=== PATIENT | male | born 1970 | race Caucasian/White ===

== ENCOUNTER 2023-06-15 15:58 | Observation (INO) ==
--- NOTE | 2023-06-15 16:14 | ED Triage Note ---
Date of Service June 15, 2023 Provider in Triage Author: Adonay Tamez. History of Present Illness This patient was briefly evaluated while in triage. An abbreviated physical exam was performed. This patient is a 53-year-old Male who presents to the ED for evaluation of righ t upper abdominal pain, intermittent vomiting that has been present over the past few weeks. vomiting seems to be worse at night after he has been lying in bed for an hour or so. States he develops pain behind his L shoulder blade before symptoms start. no chest pain or dyspnea otherwise. in [place] right now. No medical problems. Never been immunized. Physical Exam CONSTITUTIONAL: in no acute pain or distress, resting comfortably SKIN: pink, warm, dry CARDIAC: regular rate and rhythm RESPIRATORY: in no respiratory distress, lungs clear ABDOMEN: focally tender in RUQ Initial orders for labs and / or imaging were placed and patient was placed in the waiting area until a bed is available. Please see further documentation for the full ED course.
[2023-06-15 16:47] LABS: Basophils # (auto) 0.03 K/uL (0.00-0.20); Basophils % (auto) 0.2 %; Hematocrit (blood only) 47.1 % (42.0-52.0); Hemoglobin 16.6 g/dl (14.0-18.0); Immature Granulocytes # (auto) 0.09 K/uL (0.01-0.20); Immature Granulocytes % (auto) 0.5 %; Lymphocytes # (auto) 1.34 K/uL (1.20-3.40); Lymphocytes % (auto) 7.7 %; Mean Corpuscular Hemoglobin 29.5 pg (25.0-34.0); Mean Corpuscular Hgb Conc 35.2 g/dL (32.0-36.0); Mean Corpuscular Volume 83.7 fL (80.0-100.0); Mean Platelet Volume 10.2 fL (9.4-12.4); Monocytes # (auto) 0.83 K/uL (0.11-0.59); Monocytes % (auto) 4.7 %; Neutrophils # (auto) 15.22 K/uL (1.40-6.50); Neutrophils % (auto) 86.9 %; Platelet Count 329 K/uL (130-400); RDW Coefficient of Variation 13.2 % (11.5-14.5); RDW Standard Deviation 39.9 fL (36.4-46.3); Red Blood Count 5.63 M/uL (4.70-6.10); White Blood Count 17.51 K/ul (4.8-10.8)
[2023-06-15] MEDS: SODIUM CHLORIDE 0.9% 1,000 ML IV STA (16:50)
[2023-06-15 17:05] LABS: Albumin Globulin Ratio 1.7 (0.9-2); BUN Creatinine Ratio 11.5 (10-20); Bilirubin,Total 1.3 mg/dl (0.2-1.0); Calcium 9.4 mg/dl (8.6-10.3); Creatinine Clr Calc Pharmacy 111.8 ml/min; Est GFR (African American) 118.6 ml/min; Est GFR (Non-African American) 102.3 ml/min; Globulin 2.9 gm/dl (2.5-4.0); Potassium 3.4 mmol/L (3.5-5.1); Total Protein 7.9 gm/dl (6.0-8.3)
[2023-06-15 17:11] LABS: Troponin I High Sensitivity 3.7 pg/ml (0-20)
[2023-06-15] MEDS: OPTIRAY 320 500ml IV ONE (17:43)
--- NOTE | 2023-06-15 18:08 | CT Scan Report ---
CT OF THE ABDOMEN AND PELVIS WITH CONTRAST CLINICAL HISTORY: right upper abdominal pain, intermittent COMPARISON STUDY: None. TECHNIQUE: Following IV administration of 85 mL of Optiray, axial images of the abdomen and pelvis we re obtained from the lung bases to the proximal femurs. Images were reviewed in the axial, sagittal, and coronal planes. IV contrast was administered without complication. Automated exposure control wa s utilized for the study. A dose lowering technique was utilized adhering to the principles of ALARA . CT DOSE: 1124.62 mGy.cm FINDINGS: Lung bases are unremarkable. No pneumatosis, free air or portal venous gas is present. A lo bulated low-attenuation 2.8 cm splenic lesion is indeterminate but statistically benign. The adrenal glands, kidneys and pancreas are unremarkable. There is no biliary or pancreatic ductal dilatation. S ubcentimeter right hepatic lobe lesion favors a cyst. 2.3 cm peripherally calcific gallstone within t he gallbladder neck is noted. Gallbladder is mildly distended. There is mild pericholecystic strandin g with gallbladder wall thickening. There is no evidence for a bowel obstruction. The caliber and wal l thickness of small and large bowel are normal. The appendix is unremarkable. Major vasculature is p atent. IMPRESSION: Findings suggestive of acute cholecystitis. Gallstone within the gallbladder neck with m ild gallbladder wall thickening and pericholecystic stranding. ACT 112: Negative or not required by law. Electronically signed by: Alexei Powell M.D. 06/15/2023 6:06 PM
[2023-06-15] MEDS: ACETAMINOPHEN 1,000 MG/100 ML VIAL IV STA (18:17)
[2023-06-15] MEDS: ONDANSETRON INJ 2 MG/ML 2 ML VIAL IV STA (18:18)
[2023-06-15] MEDS: SODIUM CHLORIDE 0.9% 1,000 ML IV SCH (18:18)
[2023-06-15] MEDS: FAMOTIDINE 20MG IV PUSH 20 MG/5 ML SYR IV STA (18:18)
[2023-06-15] MEDS ORDERED: MoRPHine SULFATE 4 MG/ML 1 ML CARP\\VIAL IV PRN (18:58)
--- NOTE | 2023-06-15 18:58 | Emergency Department Note ---
Impression & Plan Abdominal pain, Acute cholecystitis, Nausea & vomiting ED Provider Note ED Provider Note NAME: GERI FREEMAN AGE:53 SEX: Male : 1970 ARRIVES VIA: Private vehicle INFORMANT: Patient ED PROVIDER(s): Kristina Monique DO CHIEF COMPLAINT: Abdominal pain, nausea and vomiting HPI: This is a 53-year-old male presents emergency department due to concern for abdominal pain, nausea and vomiting. Patient with 3 intermittent episodes over the course the last 2 weeks. He states he will feel a slight pain in his back and then begins to have right upper quadrant pain followed by nausea and vomiting which last approximately 6 hours. Patient states symptoms began last night around midnight and never began to slow until around 7 AM this morning. He states he feels very tired at this time. He denies any accompanying fevers or chills at the states he did feel cold and sweaty when he was actively vomiting. He denies any hematemesis. He denies any recent change in bowels or urine. He denies any other prior GI or abdominal history. Patient states he takes no medications. PAST MEDICAL HISTORY:See Below PAST SURGICAL HISTORY:See Below FAMILY HISTORY:See Below SOCIAL HISTORY:See Below HOME MEDICATIONS:See Below ALLERGIES:See Below VITALS:See Below PHYSICAL EXAMINATION: GENERAL: alert, well appearing, well nourished, no distress, non-toxic EYE EXAM: normal conjunctiva, PERRL and EOM's grossly intact OROPHARYNX: no exudate, no erythema, lips, buccal mucosa, and tongue normal and mucous membranes are dry NECK: supple, no nuchal rigidity, no adenopathy, non-tender LUNGS: Clear to auscultation. Normal chest wall mechanics, no w/r/r HEART: no murmurs, S1 normal and S2 normal ABDOMEN: abdomen soft, tenderness to palpation in the right upper quadrant, normo-active bowel sounds, no masses, no rebound or guarding. BACK: Back is symmetrical on inspection and there is no deformity, no midline tenderness, no CVA tenderness. SKIN: no rashes, petechiae, orbruising UPPER EXTREMITIES: upper extremities are grossly normal. FROM, nml pulses b/l. LOWER EXTREMITIES: No pitting edema. FROM, nml pulses b/l. NEURO EXAM: Normal sensorium, cranial nerves II-XII grossly intact, normal speech, no facial droop,nogross weakness of arms, no gross weakness of legs. Gross sensation intact. No ataxia. Vital Signs: reviewed and remarkable Differential Diagnosis: Viral syndrome, GI bleed, pancreatitis, acute cholecystitis, colitis, bowel obstruction, mesenteric ischemia, renal colic, ACS, dissection, as well as others were considered MEDICAL DECISION MAKING: This is a 53-year-old male presents emergency department due to concern for abdominal pain, nausea and vomiting. Patient afebrile vital signs stable, patient noted to initially be mildly hypertensive although was having pain and nausea at that time. Labs drawn and sent, IV established, EKG performed at bedside interpreted me and patient monitored on telemetry. He was sent for CT of the abdomen and pelvis which showed acute cholecystitis. Patient started on IV fluids and given IV Tylenol and IV Zofran. IV morphine was added additionally as a as needed. Case discussed via [place] text with general surgery, Dr. Becerra. He will place admission orders and see the patient in the morning to discuss likely operative intervention tomorrow morning. Patient given IV Zosyn additionally. Consultation(s): 1855: Discussed with Dr. Becerra via [place] text. He will place admission orders and see the patient first thing in the morning to discuss gallbladder removal. ER Treatment Provided: See below Diagnostics Interpreted By Me: -ECG: Normal sinus at 93, normal axis, normal intervals, no acute ST/T wave changes -Cardiac Monitoring: An order was placed for continuous cardiac monitoring. The monitor shows a rate of 80 with normal sinus rhythm. -Laboratory studies: As stated above and show below. Triage Nursing Note Reviewed Prior/Outside Records Reviewed Past Med/Surg History Social History Smoking Status: Never smoker Preferred Language: Maldivian Feels Safe at Home: Yes Allergies Allergies Allergy/AdvReac Type Severity Reaction Status Date / Time Penicillins Allergy Unknown childhood Verified 06/15/23 19:07 reaction Home Meds Home Medications Medication Instructions Recorded Confirmed No Known Home Medications 06/15/23 06/15/23 Results & Data (ED) Vital Signs Vital Signs - 24 hr 06/15/23 16:05 06/15/23 17:58 06/15/23 17:59 Temperature 36.1 C L Temperature Source Temporal Artery Scan Pulse Rate 97 H 75 Pulse Rate [Right Finger] 75 Pulse Rhythm Regular Pulse Strength Normal Respiratory Rate 20 20 20 Respiratory Effort / Characteristics Non-Labored Spontaneous Non-Labored Spontaneous Respiratory Depth Normal Normal Respiratory Pattern Regular Regular Blood Pressure 169/121 H Blood Pressure [Right Arm] 173/111 H Blood Pressure Mean 137 Blood Pressure Mean [Right Arm] 131 Blood Pressure Position Sitting Pulse Oximetry 98 97 97 Oxygen Delivery Method Room Air Room Air Room Air Sepsis Recent Fever Within 48 Hours No Sepsis New/Unexplained Change in Mental Status No Sepsis Action Taken by Nursing No Action Required Laboratory Data 06/15/23 16:34 06/15/23 16:34 Lab Results 06/15/23 Range/Units 16:34 WBC 17.51 H (4.8-10.8) K/ul RBC 5.63 (4.70-6.10) M/uL Hgb 16.6 (14.0-18.0) g/dl Hct 47.1 (42.0-52.0) % MCV 83.7 (80.0-100.0) fL MCH 29.5 (25.0-34.0) pg MCHC 35.2 (32.0-36.0) g/dL RDW Std Deviation 39.9 (36.4-46.3) fL RDW Coeff of Christiane 13.2 (11.5-14.5) % Plt Count 329 (130-400) K/uL MPV 10.2 (9.4-12.4) fL Immature Gran % (Auto) 0.5 % Neut % (Auto) 86.9 % Lymph % (Auto) 7.7 % [place] % (Auto) 4.7 % Eos % (Auto) 0.0 % Baso % (Auto) 0.2 % Neut # (Auto) 15.22 H (1.40-6.50) K/uL Lymph # (Auto) 1.34 (1.20-3.40) K/uL [place] # (Auto) 0.83 H (0.11-0.59) K/uL Eos # (Auto) 0.00 (0.00-0.50) K/uL Baso # (Auto) 0.03 (0.00-0.20) K/uL Immature Gran # (Auto) 0.09 (0.01-0.20) K/uL Sodium 139 (136-145) mmol/L Potassium 3.4 L (3.5-5.1) mmol/L Chloride 105 (98-107) mmol/L Carbon Dioxide 26 (21-32) mmol/L Anion Gap 8 (3-11) BUN 9 (6-23) mg/dl Creatinine 0.78 (0.6-1.4) mg/dl Est Cr Clr Drug Dosing 111.8 ml/min Est GFR ( Amer) 118.6 ml/min Est GFR (Non-Af Amer) 102.3 ml/min BUN/Creatinine Ratio 11.5 (10-20) Glucose 168 H (70-99(Fasting)) mg/dl Calcium 9.4 (8.6-10.3) mg/dl Total Bilirubin 1.3 H (0.2-1.0) mg/dl AST 17 (13-39) U/L ALT 20 (7-52) U/L Alkaline Phosphatase 84 (34-104) U/L Troponin I High Sens 3.7 (0-20) pg/ml Total Protein 7.9 (6.0-8.3) gm/dl Albumin 5.0 (3.4-5.0) gm/dl Globulin 2.9 (2.5-4.0) gm/dl Albumin/Globulin Ratio 1.7 (0.9-2) Lipase 10 L (11-82) U/L Administered Medications Hydralazine HCl (Hydralazine Hcl 20 Mg/Ml Vial) 10 mg IV Q8 PRN PRN Reason: for SBP>160 or DBP>100 Stop: 07/15/23 21:53 Last Admin: 06/15/23 22:15 Dose: 10 mg Documented By: DYLAN Potassium Chloride (K Chi / Wtr) 10 meq in 100 mls @ 100 mls/hr IV Q1H FLY Stop: 06/15/23 23:53 Last Admin: 06/15/23 22:09 Dose: 100 mls/hr Documented By: DYLAN Potassium Chloride/Sodium Chloride (Normal Saline W/20 Meq Kcl) 20 meq in 1,000 mls @ 75 mls/hr IV .[id number] FLY; Protocol Stop: 07/15/23 23:14 Last Admin: 06/15/23 23:20 Dose: 75 mls/hr Documented By: DYLAN Discontinued Medications Sodium Chloride (Nss) 1,000 mls @ 999 mls/hr IV .Q1H1M STA Stop: 06/15/23 17:06 Last Infusion: 06/15/23 17:58 Dose: Infused Documented By: Admin: 06/15/23 16:50 Dose: 999 mls/hr Documented By: KANWAL Sodium Chloride (Nss) 1,000 mls @ 125 mls/hr IV .Q8H FLY Stop: 07/15/23 18:14 Last Infusion: 06/15/23 23:20 Dose: Infused Documented By: Admin: 06/15/23 18:18 Dose: 125 mls/hr Documented By: FAISAL Acetaminophen (Ofirmev) 1,000 mg in 100 mls @ 400 mls/hr IV NOW STA Stop: 06/15/23 18:25 Last Infusion: 06/15/23 18:33 Dose: Infused Documented By: Admin: 06/15/23 18:17 Dose: 400 mls/hr Documented By: FAISAL Famotidine (Pepcid 20mg Iv Push) 20 mg in 5 mls @ 2.5 mls/min IV NOW STA Stop: 06/15/23 18:12 Last Admin: 06/15/23 18:18 Dose: 2.5 mls/min Documented By: FAISAL Piperacillin Sod/Tazobactam Sod (Zosyn) 4.5 gm in 100 mls @ 200 mls/hr IV NOW ONE Stop: 06/15/23 19:28 Last Infusion: 06/15/23 22:09 Dose: Infused Documented By: Admin: 06/15/23 19:39 Dose: 200 mls/hr Documented By: KANWAL Ioversol (Optiray 320 500ml) 85 ml IV ONCE ONE Stop: 06/15/23 17:44 Last Admin: 06/15/23 17:43 Dose: 85 ml Documented By: LAURA Ondansetron HCl (Ondansetron Inj 2 Mg/Ml 2 Ml Vial) 4 mg IV NOW STA Stop: 06/15/23 18:12 Last Admin: 06/15/23 18:18 Dose: 4 mg Documented By: FAISAL Imaging Data Radiologist's Impression: Abdomen/Pelvis CT 06/15/23 16:07 CT OF THE ABDOMEN AND PELVIS WITH CONTRAST CLINICAL HISTORY: right upper abdominal pain, intermittent COMPARISON STUDY: None. TECHNIQUE: Following IV administration of 85 mL of Optiray, axial images of the abdomen and pelvis were obtained from the lung bases to the proximal femurs. Images were reviewed in the axial, sagittal, and coronal planes. IV contrast was administered without complication. Automated exposure control was utilized for the study. A dose lowering technique was utilized adhering to the principles of ALARA. CT DOSE: 1124.62 mGy.cm FINDINGS: Lung bases are unremarkable. No pneumatosis, free air or portal venous gas is present. A lobulated low-attenuation 2.8 cm splenic lesion is indeterminate but statistically benign. The adrenal glands, kidneys and pancreas are unremarkable. There is no biliary or pancreatic ductal dilatation. Subcentimeter right hepatic lobe lesion favors a cyst. 2.3 cm peripherally calcific gallstone within the gallbladder neck is noted. Gallbladder is mildly distended. There is mild pericholecystic stranding with gallbladder wall thickening. There is no evidence for a bowel obstruction. The caliber and wall thickness of small and large bowel are normal. The appendix is unremarkable. Major vasculature is patent. IMPRESSION: Findings suggestive of acute cholecystitis. Gallstone within the gallbladder neck with mild gallbladder wall thickening and pericholecystic stranding. ACT 112: Negative or not required by law. Electronically signed by: Alexei Powell M.D. 06/15/2023 6:06 PM Discharge Plan Visit Data Chief Complaint: Vomiting Stated Complaint: VOMITING, ABD PAIN ED Provider: Kristina Monique Discharge Problem: Abdominal pain, Acute cholecystitis, Nausea & vomiting Patient Disposition: Admitted As Inpatient Discharge Instructions Interventions: ED Discharge Assessment Last Done: 06/15/23 21:33
[2023-06-15] MEDS ORDERED: ONDANSETRON INJ 2 MG/ML 2 ML VIAL IV PRN (19:01)
[2023-06-15] MEDS ORDERED: HYDROmorphone INJ 0.5 MG/0.5 ML SYR IV PRN ×2 (19:01)
[2023-06-15 19:37] LABS: Appearance Urine Clear (Clear); Bilirubin Urine Negative (Negative); Blood Urine Negative (Negative); Color Urine Yellow; Glucose Urine UA Trace (Negative); Ketones Urine Negative (Negative); Leukocyte Esterase Urine Negative (Negative); Nitrite Urine Negative (Negative); Protein Urine Negative (Negative); Specific Gravity Urine > 1.045 (1.000-1.030); Urobilinogen Urine Negative (Negative)
[2023-06-15] MEDS: PIPERACILLIN/TAZOBACTAM 4.5 GM/100 ML BAG IV ONE (19:39)
[2023-06-15] MEDS: POTASSIUM CHLORIDE / WTR 10 MEQ/100 ML PLCT IV SCH (22:09)
[2023-06-15] MEDS: hydrALAZINE HCL 20 MG/ML VIAL IV PRN (22:15)
--- NOTE | 2023-06-15 23:05 | Hospitalist Consultation ---
Date of Consultation June 15, 2023 Assessment & Plan (1) Hypertension: (2) Acute cholecystitis: (3) Nausea & vomiting: (4) Abdominal pain: Plan Acute cholecystitis/nausea and vomiting- Patient is admitted to the primary service of general surgery Dr. Becerra Continue treatment per his direction Uncontrolled blood pressure/hypertension- Patient reports that he has known for years of his blood pressure being elevated, after randomly putting his arm into blood pressure cuffs at stores. He has never been on blood pressure medication Peak blood pressure in the emergency department was 209/133 with heart rate 55 After arriving to the medical floor, first dose of hydralazine 10 mg IV improved blood pressure to 193/98 with heart rate 55 Patient next had amlodipine 5 mg and lisinopril 10 mg p.o. added, and 2 hours later blood pressure decreased to 164/88 with pulse 71 Continue hydralazine 10 mg IV as needed systolic blood pressure greater than 160, but change interval from every 8 hours as needed to every 4 hours as needed Of note, from the ED, patient did receive 1 L normal bolus of normal saline, nd was being maintained on normal saline at 125 MLS per hour The fluid bolus may be transiently contributing to his elevated blood pressure. IV fluids changed to NSS + KCl 20 mEq at 75 MLS per hour, to help address potassium 3.4 [facility] service will follow patient along during stay History of Present Illness Reason for Consultation: Elevated blood pressure Requesting Physician: Isma Becerra DO Attending Physician: Isma Becerra, History of Present Illness The patient presented to the emergency department due to concerns regarding abdominal pain, nausea and vomiting, having had 3 episodes of the past 2 weeks, with the last episode beginning last night, and lasting into around 7 AM this morning. Upon questioning, the patient reports that he has known that his blood pressure has been elevated for quite some time, several years, after having put his arm into a blood pressure cuff erratically at a place like [facility]. While in the emergency department this evening, blood pressure upon presentation was 169/121 with a heart rate in the 50s, with peak pressure being 209/133 and heart rate 55. The patient is admitted to the medical service of Dr. Becerra for potential lap tiffanie tomorrow, and we are asked to assess and control blood pressure this evening Allergies Allergy/AdvReac Type Severity Reaction Status Date / Time Penicillins Allergy Unknown childhood Verified 06/15/23 19:07 reaction Home Medications Medication Instructions Recorded Confirmed Type No Known Home Medications 06/15/23 06/15/23 History Patient History Medical History (Updated 06/16/23 @ 02:19 by Sanchez Ward MD) Hypertension Social History Smoking Status: Never smoker Hx Alcohol Use: No Hx Substance Use: Yes Last Used Substance: Days (ago) Preferred Language: Canadian Communication Ability: Effective Office Coordinator Receptionist Required: No Beliefs That Will Affect Care: None Current Living Situation: Spouse Feels Safe at Home: Yes Safety Concerns: Feels Safe At This Time Review of Systems Review of Systems: The patient denies chest pain, palpitations, shortness of breath, dyspnea on exertion, cough, lower extremity swelling, sore throat, fevers, chills, sweats, weight change, blood in urine or stool, dysuria, urinary frequency or urgency, lightheadedness, dizziness, headache, memory loss, loss of consciousness, rash, abnormal bruising or bleeding, imbalance, focal weakness, numbness or tingling in arms or legs, generalized arthralgias or myalgias, neck pain, or night sweats. The review of systems is otherwise negative other than for that already noted above, and at least 10 systems have been reviewed. Physical Exam Physical Exam: The patient is awake, alert and oriented 3, well developed and well nourished, normocephalic and atraumatic, lying in bed and in no acute distress. HEENT--PERRL, EOMI, mucous membranes and oropharynx mildly dry. Neck--supple. No JVD. No bruits. Thyroid normal, trachea midline, no adenopathy. Heart--normal S1 and S2. No murmurs, rubs or gallops. Lungs--clear bilaterally, no respiratory distress, no accessory muscle use. Abdomen--normal bowel sounds and soft. Mild right upper quadrant tenderness Extremities--no cyanosis or clubbing. No edema. Dermatologic--normal skin turgor, normal color, no abnormal lymph nodes, no rash. Neurologic--cranial nerves II through XII grossly intact. Rheumatologic--normal range of motion. Psychiatric--normal affect. Results & Data Results & Data Vital Signs (Past 12 Hours) Vital Signs Temp Pulse Pulse Pulse Resp BP BP 06/15/23 22:45 193/98 H 06/15/23 21:00 55 L 15 198/117 H 06/15/23 20:30 61 19 186/110 H 06/15/23 20:00 66 13 199/121 H 06/15/23 19:56 60 06/15/23 19:46 204/124 H 06/15/23 19:45 59 L 15 209/133 H 06/15/23 17:59 75 20 173/111 H 06/15/23 17:58 75 20 06/15/23 16:05 36.1 C L 97 H 20 169/121 H Pulse Ox O2 Del Method 06/15/23 22:45 06/15/23 21:00 97 Room Air 06/15/23 20:30 97 Room Air 06/15/23 20:00 97 Room Air 06/15/23 19:56 06/15/23 19:46 06/15/23 19:45 97 Room Air 06/15/23 17:59 97 Room Air 06/15/23 17:58 97 Room Air 06/15/23 16:05 98 Room Air Laboratory Results Laboratory Results WBC 17.51 K/ul (4.8-10.8) H 06/15/23 16:34 RBC 5.63 M/uL (4.70-6.10) 06/15/23 16:34 Hgb 16.6 g/dl (14.0-18.0) 06/15/23 16:34 Hct 47.1 % (42.0-52.0) 06/15/23 16:34 MCV 83.7 fL (80.0-100.0) 06/15/23 16:34 MCH 29.5 pg (25.0-34.0) 06/15/23 16:34 MCHC 35.2 g/dL (32.0-36.0) 06/15/23 16:34 RDW Std Deviation 39.9 fL (36.4-46.3) 06/15/23 16:34 RDW Coeff of Christiane 13.2 % (11.5-14.5) 06/15/23 16:34 Plt Count 329 K/uL (130-400) 06/15/23 16:34 MPV 10.2 fL (9.4-12.4) 06/15/23 16:34 Immature Gran % (Auto) 0.5 % 06/15/23 16:34 Neut % (Auto) 86.9 % 06/15/23 16:34 Lymph % (Auto) 7.7 % 06/15/23 16:34 [place] % (Auto) 4.7 % 06/15/23 16:34 Eos % (Auto) 0.0 % 06/15/23 16:34 Baso % (Auto) 0.2 % 06/15/23 16:34 Neut # (Auto) 15.22 K/uL (1.40-6.50) H 06/15/23 16:34 Lymph # (Auto) 1.34 K/uL (1.20-3.40) 06/15/23 16:34 [place] # (Auto) 0.83 K/uL (0.11-0.59) H 06/15/23 16:34 Eos # (Auto) 0.00 K/uL (0.00-0.50) 06/15/23 16:34 Baso # (Auto) 0.03 K/uL (0.00-0.20) 06/15/23 16:34 Immature Gran # (Auto) 0.09 K/uL (0.01-0.20) 06/15/23 16:34 Sodium 139 mmol/L (136-145) 06/15/23 16:34 Potassium 3.4 mmol/L (3.5-5.1) L 06/15/23 16:34 Chloride 105 mmol/L (98-107) 06/15/23 16:34 Carbon Dioxide 26 mmol/L (21-32) 06/15/23 16:34 Anion Gap 8 (3-11) 06/15/23 16:34 BUN 9 mg/dl (6-23) 06/15/23 16:34 Creatinine 0.78 mg/dl (0.6-1.4) 06/15/23 16:34 Est Cr Clr Drug Dosing 111.8 ml/min 06/15/23 16:34 Est GFR ( Amer) 118.6 ml/min 06/15/23 16:34 Est GFR (Non-Af Amer) 102.3 ml/min 06/15/23 16:34 BUN/Creatinine Ratio 11.5 (10-20) 06/15/23 16:34 Glucose 168 mg/dl (70-99(Fasting)) H 06/15/23 16:34 Calcium 9.4 mg/dl (8.6-10.3) 06/15/23 16:34 Total Bilirubin 1.3 mg/dl (0.2-1.0) H 06/15/23 16:34 AST 17 U/L (13-39) 06/15/23 16:34 ALT 20 U/L (7-52) 06/15/23 16:34 Alkaline Phosphatase 84 U/L (34-104) 06/15/23 16:34 Troponin I High Sens 3.7 pg/ml (0-20) 06/15/23 16:34 Total Protein 7.9 gm/dl (6.0-8.3) 06/15/23 16:34 Albumin 5.0 gm/dl (3.4-5.0) 06/15/23 16:34 Globulin 2.9 gm/dl (2.5-4.0) 06/15/23 16:34 Albumin/Globulin Ratio 1.7 (0.9-2) 06/15/23 16:34 Lipase 10 U/L (11-82) L 06/15/23 16:34 Urine Color Yellow 06/15/23 19:24 Urine Appearance Clear (Clear) 06/15/23 19:24 Urine pH 8.0 (4.5-7.5) H 06/15/23 19:24 Ur Specific [place] > 1.045 (1.000-1.030) H 06/15/23 19:24 Urine Protein Negative (Negative) 06/15/23 19:24 Urine Glucose (UA) Trace (Negative) H 06/15/23 19:24 Urine Ketones Negative (Negative) 06/15/23 19:24 Urine Blood Negative (Negative) 06/15/23 19:24 Urine Nitrite Negative (Negative) 06/15/23 19:24 Urine Bilirubin Negative (Negative) 06/15/23 19:24 Urine Urobilinogen Negative (Negative) 06/15/23 19:24 Ur Leukocyte Esterase Negative (Negative) 06/15/23 19:24 Impressions Abdomen/Pelvis CT 06/15/23 16:07 CT OF THE ABDOMEN AND PELVIS WITH CONTRAST CLINICAL HISTORY: right upper abdominal pain, intermittent COMPARISON STUDY: None. TECHNIQUE: Following IV administration of 85 mL of Optiray, axial images of the abdomen and pelvis were obtained from the lung bases to the proximal femurs. Images were reviewed in the axial, sagittal, and coronal planes. IV contrast was administered without complication. Automated exposure control was utilized for the study. A dose lowering technique was utilized adhering to the principles of ALARA. CT DOSE: 1124.62 mGy.cm FINDINGS: Lung bases are unremarkable. No pneumatosis, free air or portal venous gas is present. A lobulated low-attenuation 2.8 cm splenic lesion is indeterminate but statistically benign. The adrenal glands, kidneys and pancreas are unremarkable. There is no biliary or pancreatic ductal dilatation. Subcentimeter right hepatic lobe lesion favors a cyst. 2.3 cm peripherally ca lcific gallstone within the gallbladder neck is noted. Gallbladder is mildly distended. There is mild pericholecystic stranding with gallbladder wall thickening. There is no evidence for a bowel obstruction. The caliber and wall thickness of small and large bowel are normal. The appendix is unremarkable. Major vasculature is patent. IMPRESSION: Findings suggestive of acute cholecystitis. Gallstone within the gallbladder neck with mild gallbladder wall thickening and pericholecystic stranding. ACT 112: Negative or not required by law. Electronically signed by: Alexei Powell M.D. 06/15/2023 6:06 PM PG Care Time/CCT Total # of Minutes Spent Total Time Spent with Patient: Total time spent is greater than 50% in coordination of care (as documented) at patient's floor/unit and/or counseling patient: Coding Level of Care Code 51646 IN/OBS CONSULT LVL 4,60M Diagnoses Hypertension I10 Acute cholecystitis K81.0 Nausea & vomiting R11.2 Abdominal pain R10.9
[2023-06-15] MEDS: NSS + 20MEQ KCL 20 MEQ/1,000 ML BAG IV SCH (23:20)
[2023-06-15] MEDS: lisinopril 10 MG TAB PO STA (23:21)
[2023-06-15] MEDS: amLODIPine BESYLATE 5 MG TAB PO ONE (23:21)
[2023-06-15] MEDS: CIPROFLOXACIN / D5W 400 MG/200 ML BAG IV SCH (23:38)
[2023-06-15] MEDS: metroNIDAZOLE 500 MG/100 ML BAG IV SCH (23:38)
[2023-06-16] MEDS ORDERED: PIPERACILLIN/TAZOBACTAM 4.5 GM in DEXTROSE 5% MINI-B 100 ML IV SCH
[2023-06-16] MEDS ORDERED: hydrALAZINE HCL 20 MG/ML VIAL IV PRN (00:15)
[2023-06-16 07:49] LABS: Albumin Level 4.3 gm/dl (3.4-5.0); Bilirubin Direct 0.3 mg/dl (0-0.2); Bilirubin,Total 1.3 mg/dl (0.2-1.0); Total Protein 6.9 gm/dl (6.0-8.3)
--- NOTE | 2023-06-16 09:40 | Hospitalist Progress Note ---
Date of Service June 16, 2023 Assessment & Plan (1) Acute cholecystitis: Plan: - Pain control/dvt proh/abx per primary team - general surgery, Dr. Becerra - plan for MRCP today with possible OR later (2) Hypertension: Plan: - From [place], does not regularly go to doctors, has been told BP elevated in past, never on medication - Highest in ED 209/133, received hydralazine 10 mg IV, amlodipine 5 mg and lisinopril 10 mg p.o. added, and 2 hours later blood pressure decreased to 164/88 with pulse 71 - Continue hydralazine 10 mg IV as needed systolic blood pressure greater than 160 every 4 hours as needed - will likely need transitioned to PO meds prior to discharge - IV fluids changed to NSS + KCl 20 mEq at 75 mLs per hour, to help address potassium 3.4 -Recheck BMP in am Plan Dispo: continued inpatient stay Admission and Anticipated Discharge Date Admission Date: June 15, 2023 Subjective Patient sitting up in bed, moves independently. 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 RUQ pain for the last few months, worse in the last few weeks. Pain well controlled. Per patient MRCP prior to possible surgery today. No further vomiting, but pt is NPO. Reports went to doctor at age 49 for physical and BP was elevated, never instructed to start medication. Has not been to doctor since. Review of Systems Review of Systems: All systems reviewed & are unremarkable except as noted in Subjective Physical Exam Physical Exam: General: NAD, VS as above Resp: normal respiratory effort, lungs clear to auscultation CV: RRR, no murmur, Abd: normal bowel sounds, tenderness RUQ, no hepatosplenomegaly Extremities: Moves all extremities, no edema Neuro: A&O x3, Skin: intact, no lesions noted, nonjaundice Results & Data Results & Data Vital Signs (Past 12 Hours) Vital Signs Temp Pulse Resp BP Pulse Ox O2 Del Method 06/16/23 07:41 36.6 C 72 18 161/101 H 96 Room Air 06/16/23 01:41 71 164/88 H 06/15/23 22:45 193/98 H 06/15/23 21:45 37.1 C 63 16 188/118 H 97 Room Air Laboratory Results LFTs reviewed PG Care Time/CCT Total # of Minutes Spent Total Time Spent with Patient: Total time spent is greater than 50% in coordination of care (as documented) at patient's floor/unit and/or counseling patient: Coding Level of Care Code 54250 SUB INP/OBS CARE 2MIN Diagnoses Acute cholecystitis K81.0 Hypertension I10
--- NOTE | 2023-06-16 11:05 | Magnetic Resonance Report ---
MR MRCP CLINICAL HISTORY: elevated LFTs TECHNIQUE: Multiplanar multisequence MR images of the abdomen were obtained, as per MRCP protocol. . COMPARISON: None available at the time of this dictation. FINDINGS: Lower chest: No acute abnormality Liver: Unremarkable. No focal lesions are seen. Gallbladder and biliary tree: Gallstones are seen with a thickened gallbladder wall measuring approxi mately 5 mm in diameter with pericholecystic fluid. No intra- or extrahepatic biliary ductal dilation . Pancreas: Unremarkable, no focal lesions. Spleen: T2 hyperintense lesion in the spleen may represent a hemangioma or cyst Adrenals: Unremarkable. Kidneys and ureters: Perinephric stranding is noted bilaterally. Bowel: Unremarkable. Lymph nodes Retroperitoneal: Unremarkable. Mesenteric: Unremarkable. Peritoneum: Normal Vessels: Unremarkable. Abdominal wall: Unremarkable. Bones: Unremarkable. IMPRESSION: Findings are compatible with cholecystitis which may be acute or chronic in this patient with months of right upper quadrant pain. The common bile duct is unremarkable. ACT 112: Negative or not required by law. Electronically signed by: Lenin Dinh M.D. 06/16/2023 11:04 AM
--- NOTE | 2023-06-16 11:18 | History & Physical Report ---
Date of Service June 16, 2023 Assessment & Plan (1) Acute cholecystitis: Plan: Slight bump in his total bilirubin and direct bilirubin. MRCP does not show any common bile duct stones. Discussed his options as well as risks which include bleeding, infection, injury to another organ or bile duct, DVT, PE, SC, CVA etc. I answered all his questions. He agrees with the plan we will proceed today with laparoscopic cholecystectomy. Admission and Anticipated Discharge Date Admission Date: June 15, 2023 History of Present Illness Primary Care Provider: NO PCP 53-year-old male with a 2-week history of intermittent vomiting. Complaints where he vomited over 10 times. He had severe pain and came to the emergency room where he was diagnosed with acute cholecystitis Allergies Allergy/AdvReac Type Severity Reaction Status Date / Time Penicillins Allergy Unknown childhood Verified 06/15/23 19:07 reaction Home Medications Medication Instructions Recorded Confirmed Type No Known Home Medications 06/15/23 06/15/23 History Past Med/Surg History Medical History (Updated 06/16/23 @ 02:19 by Sanchez Ward MD) Hypertension Social History Smoking Status: Never smoker Hx Alcohol Use: No Hx Substance Use: Yes Last Used Substance: Days (ago) Preferred Language: Dutch Communication Ability: Effective Teller Manager Required: No Beliefs That Will Affect Care: None Current Living Situation: Spouse Feels Safe at Home: Yes Safety Concerns: Feels Safe At This Time Review of Systems All systems reviewed & are unremarkable except as noted in HPI & below Physical Exam Constitutional: WD/WN, vitals as above no acute distress and not ill appearing Eyes: PERRL, conjunctivae normal, anicteric sclerae EOM intact bilaterally ENMT: external ear and nose normal, oropharynx normal Ears: no hearing impairment Neck: trachea midline, no thyromegaly Respiratory: normal respiratory effort; no respiratory distress and does not use accessory muscles Cardiovascular: Rate/Rhythm: regular rate and regular rhythm Gastrointestinal (Abdomen): Soft. Moderate upper quadrant tenderness. No guarding Skin: no rashes, warm and dry Psychiatric: Orientation: alert, oriented x 3 and cooperative Results & Data Vital Signs (Past 12 Hours) Vital Signs Temp Pulse Resp BP Pulse Ox O2 Del Method 06/16/23 07:41 36.6 C 72 18 161/101 H 96 Room Air 06/16/23 01:41 71 164/88 H Code Status & VTE Plan VTE Prophylaxis Plan VTE Prophylaxis will be ordered: Yes
--- NOTE | 2023-06-16 12:26 | Anesthesiology Consultation ---
Date of Service June 16, 2023 Assessment & Plan (1) Encounter for pre-operative examination: Chart Review Chart Review: Acceptable Risk for Surgery History Surgery Operation Date: 06/16/23 09:10 Proposed Procedures p Laparoscopic Cholecystectomy - Isma Becerra, Height/Weight Height: 5 ft 10 in Weight: 84.2 kg Allergies Allergy/AdvReac Type Severity Reaction Status Date / Time Penicillins Allergy Unknown childhood Verified 06/15/23 19:07 reaction Medications Home Medications Medication Instructions Recorded Confirmed Last Taken No Known Home Medications 06/15/23 06/15/23 Unknown Active Medications Generic Name Dose Route Start Last Admin Trade Name Freq PRN Reason Stop Dose Admin Ciprofloxacin 400 mg in 200 mls @ 100 mls/hr 06/15/23 22:00 06/16/23 11:19 Cipro / D5w IV 06/25/23 21:59 100 mls/hr Q12H FLY Administration Protocol Metronidazole 500 mg in 100 mls @ 100 mls/hr 06/15/23 22:00 06/16/23 07:45 Flagyl IV 06/25/23 21:59 Infused Q8H FLY Infusion Protocol Potassium Chloride/Sodium Chloride 20 meq in 1,000 mls @ 75 mls/hr 06/15/23 23:15 06/15/23 23:20 Normal Saline W/20 Meq Kcl IV 07/15/23 23:14 75 mls/hr .[id number] FLY Administration Protocol NPO Date Last Intake of Fluids: 06/14/23 Time Last Intake of Fluids: 16:00 Last Intake 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 Date Last Intake of Solids: 06/14/23 Past Medical History Medical History Hypertension Social History Smoking Status: Never smoker Hx Alcohol Use: No Hx Substance Use: Yes substance use type: marijuana Last Used Substance: Days (ago) Physical Exam Vital Signs Last Vital Signs Temp 37.1 C 06/16/23 11:45 Pulse 79 06/16/23 11:45 Resp 18 06/16/23 11:45 BP 174/95 H 06/16/23 11:45 Pulse Ox 97 06/16/23 11:45 O2 Del Method Room Air 06/16/23 11:45 Testing Laboratory Results 06/15/23 16:34 06/15/23 16:34 Urine Color Yellow 06/15/23 19:24 Urine Appearance Clear (Clear) 06/15/23 19:24 Urine pH 8.0 (4.5-7.5) H 06/15/23 19:24 Ur Specific [place] > 1.045 (1.000-1.030) H 06/15/23 19:24 Urine Protein Negative (Negative) 06/15/23 19:24 Urine Glucose (UA) Trace (Negative) H 06/15/23 19:24 Urine Ketones Negative (Negative) 06/15/23 19:24 Urine Nitrite Negative (Negative) 06/15/23 19:24 Ur Leukocyte Esterase Negative (Negative) 06/15/23 19:24 Electrocardiogram Date: 06/15/23 Findings: + NSR @ (93) and + poor R wave progression
[2023-06-16] MEDS ORDERED: MIDAZOLAM HCL 1 MG/ML 2ML VIAL ONE (12:30)
[2023-06-16] MEDS ORDERED: fentaNYL citrate PF 100 MCG/2 ML VIAL ONE ×3 (12:30→13:49)
[2023-06-16] MEDS ORDERED: PROMETHAZINE HCL 6.25 MG in SODIUM CHLORIDE 0.9% 50 ML IV PRN (12:39)
[2023-06-16] MEDS ORDERED: ATROPINE SULFATE 0.1 MG/ML 10ML SYR IV PRN (12:39)
[2023-06-16] MEDS ORDERED: fentaNYL citrate PF 100 MCG/2 ML VIAL IV PRN (12:39)
[2023-06-16] MEDS ORDERED: LABETALOL HCL IV 5 MG/ML 20ML IV PRN (12:39)
[2023-06-16] MEDS ORDERED: KETOROLAC 30 MG/ML VIAL IV PRN (12:39)
[2023-06-16] MEDS ORDERED: LIDOCAINE 2% 2 ML VIAL/AMP(20MG/ML) INFIL ONE (13:48)
[2023-06-16] MEDS ORDERED: ROCURONIUM BROMIDE 10 MG/ML 5 ML VIAL IV ONE (13:48)
[2023-06-16] MEDS ORDERED: PROPOFOL IV EMULSION 10 MG/ML 20 ML VIAL IV ONE (13:48)
[2023-06-16] MEDS ORDERED: ONDANSETRON INJ 2 MG/ML 2 ML VIAL ONE (13:48)
[2023-06-16] MEDS ORDERED: DEXAMETHASONE SOD INJ 4 MG/ML VIAL ONE (13:48)
[2023-06-16] MEDS ORDERED: LABETALOL HCL IV 5 MG/ML 20ML IV ONE ×2 (13:48→14:31)
[2023-06-16] MEDS ORDERED: SUGAMMADEX SODIUM 200 MG/2 ML VIAL IV ONE (13:50)
[2023-06-16] MEDS: BUPIVACAINE/EPINEPHRINE 0.5% MPF 1:200,000 30 ML VIAL ONE (14:09)
--- NOTE | 2023-06-16 14:22 | Operative Report ---
PG Post Operative Report Pre & Post Diagnosis Operation Date: 06/16/23 09:10 Pre-Op Diagnosis: Cholecystitis Post-Op Diagnosis: Cholecystitis I identified the patient and participated in the time-out.: Yes Procedure Operation Date: 06/16/23 09:10 Actual Procedures p Laparoscopic Cholecystectomy(Not Applicable) - Isma Becerra DO Surgeon Isma Becerra DO Lathe Winder n/a Estimated Blood Loss 25 Findings Consistent with Post-Op Diagnosis Specimens gallbladder Description of Procedure After informed consent was obtained the patient was taken to the operating room and placed in the supine position. After successful intubation the abdomen was sterilely prepped and draped in usual fashion. A periumbilical incision was made with an 11 blade scalpel and carried down through the soft tissue using electrocautery. The anterior rectus fascia was opened using electrocautery and 2 #0 Vicryl stay sutures were placed. The peritoneum was elevated with hemostats and incised under direct vision using Metzenbaum scissors. A finger sweep was performed and a 12 mm Cormier trocar was placed. The abdomen was insufflated to 18 mmHg. The laparoscope was inserted and the abdomen was examined in 360. The gallbladder was acutely inflamed otherwise, no gross abnormalities were identified. A subxiphoid 5 mm port and 2 right upper quadrant 5 mm ports were placed under direct vision. The patient was placed in a reverse Trendelenburg position and slightly airplaned to the left. Initially I was unable to grasp the gallbladder. A syringe and gallbladder needle were used to drain the gallbladder. The gallbladder was grasped and elevated superiorly and laterally. A [place] dissector was used to take down adhesions around the neck of the gallbladder. The cystic duct was identified and skeletonized. It was clipped twice proximally and once distally and transected using a laparoscopic scissor. In similar fashion the cystic artery was identified and skeletonized clipped and divided. The gallbladder was removed from the gallbladder fossa with electrocautery. It was placed into an Endo Catch bag. Thorough irrigation was performed. At the end of the procedure there was adequate hemostasis and no evidence of any bile leaks. A final look around the abdomen showed no other abnormalities. The gallbladder and trochars were all removed and the abdomen was desufflated. The fascia of the camera port was closed using 0 Vicryl in a [id number] fashion. All the wounds were irrigated and closed using 4-0 Monocryl. Marcaine was injected around them for postoperative analgesia and skin glue used as a dressing. The patient was awakened, extubated and transferred to recovery in stable condition. I attest to the content of the Intraoperative Record and any orders documented therein. Any exceptions are noted below.
--- NOTE | 2023-06-16 15:03 | Anesthesiology Progress Note ---
Date of Service June 16, 2023 Anesthesia Post Procedure Vital Signs Vital Signs: Temp Pulse Pulse Pulse Resp BP BP 06/16/23 14:50 65 20 162/105 H 06/16/23 14:40 65 22 158/104 H 06/16/23 14:30 73 20 L 20 182/108 H 06/16/23 14:22 97.7 F 83 16 L 16 176/116 H 06/16/23 11:45 98.8 F 79 18 174/95 H 06/16/23 07:41 97.9 F 72 18 161/101 H 06/16/23 01:41 71 164/88 H 06/15/23 22:45 193/98 H 06/15/23 21:45 98.8 F 63 16 188/118 H 06/15/23 21:00 55 L 15 198/117 H 06/15/23 20:30 61 19 186/110 H 06/15/23 20:00 66 13 199/121 H 06/15/23 19:56 60 06/15/23 19:46 204/124 H 06/15/23 19:45 59 L 15 209/133 H 06/15/23 17:59 75 20 173/111 H 06/15/23 17:58 75 20 06/15/23 16:05 97.0 F L 97 H 20 169/121 H Pulse Ox O2 Del Method O2 Flow Rate 06/16/23 14:50 96 Oxymask 2 06/16/23 14:40 96 Oxymask 2 06/16/23 14:30 93 Oxymask 4 06/16/23 14:22 99 Oxymask 6 06/16/23 11:45 97 Room Air 06/16/23 07:41 96 Room Air 06/16/23 01:41 06/15/23 22:45 06/15/23 21:45 97 Room Air 06/15/23 21:00 97 Room Air 06/15/23 20:30 97 Room Air 06/15/23 20:00 97 Room Air 06/15/23 19:56 06/15/23 19:46 06/15/23 19:45 97 Room Air 06/15/23 17:59 97 Room Air 06/15/23 17:58 97 Room Air 06/15/23 16:05 98 Room Air Pain Intensity Right Abdomen: Pain Intensity: 0 Transfer of Care Handoff Completed per policy Notes Mental Status: alert / awake / arousable and participated in evaluation Patient Amnestic to Procedure: Yes Nausea / Vomiting: adequately controlled Pain: adequately controlled Airway Patency, RR, SpO2: stable & adequate BP & HR: stable & adequate Hydration State: stable & adequate Anesthetic Complications: no major complications apparent and Pt Satisfied with anesthetic care
--- NOTE | 2023-06-16 19:12 | Electrocardiogram Report ---
Test Reason : Blood Pressure : / mmHG Vent. Rate : 093 BPM Atrial Rate : 093 BPM P-R Int : 134 ms QRS Dur : 090 ms QT Int : 382 ms P-R-T Axes : -05 023 025 degrees QTc Int : 474 ms Normal sinus rhythm No previous ECGs available Confirmed by Andre Galvan ([id number]) on 06/16/2023 7:11:30 PM Referred By: REFERRED SELF Confirmed By:Andre Galvan
[2023-06-17] MEDS ORDERED: oxyCODONE HCL IR 5 MG TAB (IMMEDIATE RELEASE) PO PRN (07:18)
[2023-06-17] MEDS ORDERED: ACETAMINOPHEN 325 MG TAB PO PRN (07:18)
[2023-06-17 07:34] LABS: Basophils # (auto) 0.03 K/uL (0.00-0.20); Basophils % (auto) 0.2 %; Eosinophils # (auto) 0.03 K/uL (0.00-0.50); Eosinophils % (auto) 0.2 %; Hematocrit (blood only) 43.2 % (42.0-52.0); Hemoglobin 14.9 g/dl (14.0-18.0); Immature Granulocytes # (auto) 0.09 K/uL (0.01-0.20); Immature Granulocytes % (auto) 0.6 %; Lymphocytes # (auto) 2.71 K/uL (1.20-3.40); Lymphocytes % (auto) 18.3 %; Mean Corpuscular Hemoglobin 29.2 pg (25.0-34.0); Mean Corpuscular Hgb Conc 34.5 g/dL (32.0-36.0); Mean Corpuscular Volume 84.5 fL (80.0-100.0); Mean Platelet Volume 10.2 fL (9.4-12.4); Monocytes # (auto) 1.19 K/uL (0.11-0.59); Neutrophils # (auto) 10.78 K/uL (1.40-6.50); Neutrophils % (auto) 72.7 %; Platelet Count 287 K/uL (130-400); RDW Coefficient of Variation 13.2 % (11.5-14.5); RDW Standard Deviation 41.1 fL (36.4-46.3); Red Blood Count 5.11 M/uL (4.70-6.10); White Blood Count 14.83 K/ul (4.8-10.8)
[2023-06-17 08:02] LABS: Albumin Globulin Ratio 1.7 (0.9-2); Albumin Level 4.1 gm/dl (3.4-5.0); BUN Creatinine Ratio 12.7 (10-20); Bilirubin,Total 1.2 mg/dl (0.2-1.0); Calcium 8.7 mg/dl (8.6-10.3); Creatinine Clr Calc Pharmacy 122.8 ml/min; Est GFR (African American) 123.3 ml/min; Est GFR (Non-African American) 106.4 ml/min; Globulin 2.4 gm/dl (2.5-4.0); Potassium 3.8 mmol/L (3.5-5.1); Total Protein 6.5 gm/dl (6.0-8.3)
--- NOTE | 2023-06-17 09:09 | Surgery Progress Note ---
Date of Service June 17, 2023 Assessment & Plan (1) Acute cholecystitis: Plan: POD Laparoscopic Cholecystectomy Doing well , pain tolerable Tolerating diet WBC and LFT down trending VSS Desires to go home Discussed case with Dr. Becerra, pt ok for d/c , should f/u in office in 2 weeks call with questions or concerns. Admission and Anticipated Discharge Date Admission Date: June 15, 2023 Subjective pt reports abd pain tolerable 2-5 out of 10 no Nausea/vomiting, CP , SOB passing flatus /urinating fine Review of Systems Constitutional: no fever and no chills Ear, Nose, Mouth, Throat: no hearing loss Respiratory: no dyspnea Cardiovascular: no chest pain Gastrointestinal: + abdominal pain; no nausea and no vomit ing Genitourinary: no dysuria Musculoskeletal: no muscle weakness Physical Exam Physical Exam: alert oriented Constitutional: well developed, cooperative and comfortable; no acute distress Respiratory: normal respiratory effort and able to speak in complete sentences; no respiratory distress Cardiovascular: Rate/Rhythm: regular rate Gastrointestinal (Abdomen): Inspection/Auscultation: + abdominal surgical incision (CDI dermabond); abdomen not distended Percussion/Palpation: + abdomen tender and abdomen soft; no guarding Musculoskeletal: no cyanosis or clubbing, extremities motor strength 5/5 Results & Data Vital Signs (Past 12 Hours) Vital Signs Temp Pulse Resp BP Pulse Ox O2 Del Method 06/17/23 07:43 98.4 F 77 18 155/85 H 93 Room Air 06/17/23 04:00 76 16 154/89 H 95 Room Air 06/16/23 22:44 98.8 F 76 16 149/90 H 96 Room Air Results Complete Blood Count Results: RBC 5.11 M/uL (4.70-6.10) 06/17/23 WBC 14.83 K/ul (4.8-10.8) H 06/17/23 Hgb 14.9 g/dl (14.0-18.0) 06/17/23 Hct 43.2 % (42.0-52.0) 06/17/23 Plt Count 287 K/uL (130-400) 06/17/23 Results CMP Results: Na 139 mmol/L (136-145) 06/17/23 K 3.8 mmol/L (3.5-5.1) 06/17/23 Cl 105 mmol/L (98-107) 06/17/23 CO2 26 mmol/L (21-32) 06/17/23 Anion Gap 8 (3-11) 06/17/23 BUN 9 mg/dl (6-23) 06/17/23 Creatinine 0.71 mg/dl (0.6-1.4) 06/17/23 Estimated GFR ( Amer) 123.3 ml/min 06/17/23 Estimated GFR (Non-Af Amer) 106.4 ml/min 06/17/23 BUN/Creatinine Ratio 12.7 (10-20) 06/17/23 Glu 108 mg/dl (70-99(Fasting)) H 06/17/23 Ca 8.7 mg/dl (8.6-10.3) 06/17/23 Total Bilirubin 1.2 mg/dl (0.2-1.0) H 06/17/23 Direct Bilirubin 0.3 mg/dl (0-0.2) H 06/16/23 AST 40 U/L (13-39) H 06/17/23 ALT 40 U/L (7-52) 06/17/23 Alkaline Phosphatase 73 U/L (34-104) 06/17/23 TP 6.5 gm/dl (6.0-8.3) 06/17/23 Albumin 4.1 gm/dl (3.4-5.0) 06/17/23 Globulin 2.4 gm/dl (2.5-4.0) L 06/17/23 Albumin/Globulin Ratio 1.7 (0.9-2) 06/17/23 PG Care Time/CCT Total # of Minutes Spent Total Time Spent with Patient: Total time spent is greater than 50% in coordination of care (as documented) at patient's floor/unit and/or counseling patient: Coding Level of Care Code 11925 Post Operative Follow-Up Diagnoses Acute cholecystitis K81.0
--- NOTE | 2023-06-17 10:30 | Hospitalist Progress Note ---
Date of Service June 17, 2023 Assessment & Plan (1) Acute cholecystitis: Plan: - Pain control/dvt proh/abx per primary team - general surgery, Dr. Becerra - s/p Lap Choleystectomy with Dr. Becerra 06/16 (2) Hypertension: Plan: - From [place], does not regularly go to doctors, has been told BP elevated in past, never on medication - Highest in ED 209/133, received hydralazine 10 mg IV, amlodipine 5 mg and lisinopril 10 mg p.o. added, and 2 hours later blood pressure decreased to 164/88 with pulse 71 - Continue hydralazine 10 mg IV as needed systolic blood pressure greater than 160 every 4 hours as needed - Has not needed IV medications, and BP is improved after surgery. Discussed with patient - instructed to take BP at home, and will establish with PCP in this area. Recommend DASH diet. - IVF d/c Plan Dispo: medically stable, will need outpatient follow up with PCP Admission and Anticipated Discharge Date Admission Date: June 15, 2023 Subjective Patient sitting in bed, working on laptop. Pain is well controlled. Ate a banana this morning. Passing gas. States that he plans to stay in the [facility] for awhile. Review of Systems Review of Systems: All systems reviewed & are unremarkable except as noted in Subjective Physical Exam Physical Exam: General: NAD, VS as above Resp: normal respiratory effort, lungs clear to auscultation CV: RRR, no murmur, Abd:non tender. lap sites, open to air - no signs of infection Extremities: Moves all extremities, no edema Neuro: A&O x3, Skin: intact, no lesions noted, nonjaundice Results & Data Results & Data Vital Signs (Past 12 Hours) Vital Signs Temp Pulse Resp BP Pulse Ox O2 Del Method 06/17/23 07:43 36.9 C 77 18 155/85 H 93 Room Air 06/17/23 04:00 76 16 154/89 H 95 Room Air 06/16/23 22:44 37.1 C 76 16 149/90 H 96 Room Air Laboratory Results CBC and chemistry reviewed PG Care Time/CCT Total # of Minutes Spent Total Time Spent with Patient: Total time spent is greater than 50% in coordination of care (as documented) at patient's floor/unit and/or counseling patient: Coding Level of Care Code 25857 SUB INP/OBS CARE MIN Diagnoses Acute cholecystitis K81.0 Hypertension I10
== END 2023-06-17 13:27 | disposition home or self-care (01) ==
LOC: ED 15:58 → EDINP 19:01 → INTOOBSV 19:01 → EDINP 21:33 → 3N 21:48